=== PATIENT | female | born 1980 | race Caucasian/White ===

== ENCOUNTER 2017-06-16 15:33 | Outpatient (CLI) | payer OTHER | END 2017-06-16 15:34 | disposition home or self-care (01) | LOC: LAB 15:33 | PROVIDERS: ATTEND Obstetrics & Gynecology | DX: Z32.01 Encounter for pregnancy test, result positive (principal) | CPT/HCPCS: 36415; 84702 ==

== ENCOUNTER 2017-06-18 11:52 | Outpatient (CLI) | payer OTHER | END 2017-06-18 11:53 | disposition home or self-care (01) | LOC: LAB 11:52 | PROVIDERS: ATTEND Obstetrics & Gynecology | DX: Z32.01 Encounter for pregnancy test, result positive (principal) | CPT/HCPCS: 36415; 84702 ==

== ENCOUNTER 2017-06-19 15:07 | Outpatient (CLI) | payer OTHER ==
--- NOTE | 2017-06-19 16:05 | Ultrasound Report ---
OB ULTRASOUND: 06/19/2017 CLINICAL INDICATION: Positive test. TECHNIQUE: As requested, only transvaginal imaging was performed. FINDINGS: The uterus is anteverted. There is a gestational sac with yolk sac within the endometrium. The mean sac diameter is 9 mm, too small for visualization of pole and heart motion. If clinically warranted, rescan in one to two weeks for viability. No perigestational hemorrhage is iden tified. By mean sac diameter, gestational age is approximately 4 weeks 6 days (5 weeks 3 days by LMP) . The left ovary is unremarkable, measuring 2.9 x 2.2 x 2.1 cm. The right ovary measures 4.4 x 2.6 x 2.4 cm, and demonstrates a corpus luteum. No free fluid is present. IMPRESSION: INTRAUTERINE GESTATIONAL SAC, WITH SIZE IN KEEPING WITH LMP DATING. BY MEAN SAC DIAMETER , THE DATES APPROXIMATELY 4 WEEKS 6 DAYS. MEAN SAC DIAMETER IS 9 MM, TOO SMALL TO VISUALIZE POLE OR CARDIAC MOTION. IF CLINICALLY WARRANTED, RESCAN IN ONE TO TWO WEEKS FOR VIABILIT Y. JOB #: [id number] EXT JOB #:[id number]
== END 2017-06-19 15:08 | disposition home or self-care (01) ==
LOC: DI 15:07
PROVIDERS: ATTEND Registered Nurse
DX: Z32.01 Encounter for pregnancy test, result positive (principal)
CPT/HCPCS: 76817

== ENCOUNTER 2017-06-23 15:59 | Outpatient (CLI) | payer OTHER | END 2017-06-23 16:00 | disposition home or self-care (01) | LOC: LAB 15:59 | PROVIDERS: ATTEND Obstetrics & Gynecology | DX: O20.0 Threatened abortion (principal) | CPT/HCPCS: 36415; 84144; 84702 ==